=== PATIENT | male | born 2000 | race Caucasian/White ===

== ENCOUNTER 2023-06-16 02:16 | Emergency (ER) | payer MEDICAID, OTHER ==
[~2023-06-16] VITALS: Ht 167.6 cm; Wt 85.0 kg
[2023-06-16 02:19] VITALS: BP 150/97; PULSE 102; RESP 28; TEMP 98.2; O2SAT 98
[2023-06-16 02:44] LABS: BASOPHILS % 0.5 % (0.0-2.0); DIFFERENTIAL COMMENT 0; EOSINOPHILS % 0.9 % (0.0-5.0); HEMATOCRIT. 49.9 % (42.0-52.0); HEMOGLOBIN. 17.7 g/dL (14.0-18.0); LYMPHOCYTES % 38.2 % (20.0-50.0); MEAN CORPUSCULAR HEMOGLOBIN 31.5 pg (28.0-32.0); MEAN CORPUSCULAR HGB CONC 35.6 g/dL (31.0-37.0); MEAN CORPUSCULAR VOLUME 88.5 fL (80.0-94.0); MEAN PLATELET VOLUME 8.4 fl (7.4-10.4); NEUTROPHILS % 55.4 % (40.0-76.0); PLATELET 234 x1000/uL (130-400); RED BLOOD CELL COUNT 5.64 mill/uL (4.7-6.1); RED CELL DISTRIBUTION WIDTH 13.2 % (11.6-14.6); WHITE BLOOD COUNT 4.5 x1000/uL (4.5-11.0)
[2023-06-16 03:03] LABS: ACETAMINOPHEN < 2 ug/mL (10-30); ALANINE AMINOTRANSFERASE 29 IU/L (10-49); ALBUMIN 4.9 g/dL (3.2-4.8); ASPARTATE AMINOTRANSFERASE 21 IU/L (<34); BILIRUBIN TOTAL 0.6 mg/dL (0.1-1.0); CALCIUM 9.6 mg/dL (8.7-10.4); CARBON DIOXIDE 28 mEq/L (21-32); CHLORIDE 104 mEq/L (98-107); CREATININE 0.9 mg/dL (0.6-1.3); ETHANOL BLOOD 234 mg/dL (<10); GLUCOSE 321 mg/dL (70-105); POTASSIUM 3.7 mEq/L (3.5-5.1); PROTEIN TOTAL 7.9 g/dL (6.0-8.3); SODIUM 141 mEq/L (136-145); UREA NITROGEN BLOOD 11 mg/dL (9-23)
[2023-06-16] MEDS ORDERED: ONDA4TAB50 MT (04:25)
[2023-06-16] MEDS ORDERED: INSULIN REGULAR (HUMULIN R) 300UNITS/3ML VIAL SUBCUT NR (04:30)
== END 2023-06-16 05:34 | disposition home or self-care (01) ==
LOC: ER 02:58
DX: F10.129 Alcohol abuse with intoxication, unspecified (principal); E10.65 Type 1 diabetes mellitus with hyperglycemia; Z00.00 Encounter for general adult medical examination without abnormal findings; Y90.8 Blood alcohol level of 240 mg/100 ml or more
CPT/HCPCS: 80053; 80307; 80329; 80320; 82962; 85025; 36415; 96372; 99283; J1815; G0480

== ENCOUNTER 2023-12-14 15:20 | Emergency (ER) | payer MEDICAID, OTHER ==
[~2023-12-14] VITALS: Ht 165.1 cm; Wt 80.0 kg
[~2023-12-14 15:20] MED LIST: ONDA4TAB50 MT
[2023-12-14 15:52] VITALS: TEMP 98.5; O2SAT 97
[2023-12-14] MEDS ORDERED: IBUP-2029 MT (16:44)
[2023-12-14 16:45] VITALS: BP 146/91; PULSE 81; RESP 18
[2023-12-14] MEDS: IBUPROFEN 600MG TABLET PO ONE (16:45)
== END 2023-12-14 16:55 | disposition home or self-care (01) ==
LOC: ER 15:20
DX: S83.92XA Sprain of unspecified site of left knee, initial encounter (principal); F41.9 Anxiety disorder, unspecified; E11.9 Type 2 diabetes mellitus without complications; M25.462 Effusion, left knee; X58.XXXA Exposure to other specified factors, initial encounter; Y93.89 Activity, other specified; Y92.89 Other specified places as the place of occurrence of the external cause; Y99.8 Other external cause status
CPT/HCPCS: 73562; 99283

== ENCOUNTER 2024-04-02 01:21 | Inpatient (IN) | payer MEDICAID ==
[2024-04-02] VITALS (11 sets, daily range): BP systolic 110–135; BP diastolic 51–83; PULSE 67–99; RESP 15–25; TEMP 36.83628–37.44744; O2SAT 9–98
[~2024-04-02] VITALS: Ht 160 cm; Wt 76.7 kg
[~2024-04-02 01:21] MED LIST changes: +IBUP-2029 MT
[2024-04-02] MEDS ORDERED: DILTIAZEM HCL 60MG TABLET PO ONE ×2 (01:45→02:15)
[2024-04-02] MEDS ORDERED: DILTIAZEM HCL 30MG TABLET PO SCH (01:45)
[2024-04-02] MEDS: DILTIAZEM HCL 5MG/ML 5ML VIAL IV ONE (01:53)
[2024-04-02] MEDS: LORAZEPAM 2MG/ML INJ IV ONE (01:54)
[2024-04-02] MEDS: LACTATED RINGERS 1,000 ML IV SCH (02:00)
[2024-04-02] MEDS: DILTIAZEM HCL 30MG TABLET PO SCH (02:15)
[2024-04-02] MEDS ORDERED: DILTIAZEM HCL 5MG/ML 5ML VIAL IV ONE (02:15)
[2024-04-02] MEDS: DILTIAZEM HCL 5MG/ML 5ML VIAL IV SCH (02:16)
[2024-04-02 02:25] LABS: CHLORIDE 106 mEq/L (98-107); SODIUM 141 mEq/L (136-145)
[2024-04-02 02:26] LABS: CALCIUM 8.6 mg/dL (8.7-10.4); CARBON DIOXIDE 21 mEq/L (21-32)
[2024-04-02] MEDS ORDERED: AMIODARONE HCL 900 MG in DEXT 5% WATER 482 ML IV STA (02:28)
[2024-04-02 02:31] LABS: CREATININE 0.9 mg/dL (0.6-1.3); GLUCOSE 323 mg/dL (70-105); UREA NITROGEN BLOOD 11 mg/dL (9-23)
[2024-04-02] MEDS: AMIODARONE HCL 50MG/ML 3ML VIAL IV ONE (02:46)
[2024-04-02] MEDS: AMIODARONE HCL 900 MG in DEXT 5% WATER 482 ML IV SCH (03:06)
[2024-04-02 03:14] LABS: TROPONIN I HIGH SENSITIVITY < 4 ng/L (3.0-53)
[2024-04-02 03:15] LABS: POTASSIUM 2.7 mEq/L (3.5-5.1)
[2024-04-02 03:28] LABS: BASOPHILS % 0.4 % (0.0-2.0); EOSINOPHILS % 0.6 % (0.0-5.0); HEMATOCRIT. 47.5 % (42.0-52.0); HEMOGLOBIN. 16.4 g/dL (14.0-18.0); LYMPHOCYTES % 30.7 % (20.0-50.0); MEAN CORPUSCULAR HEMOGLOBIN 31.2 pg (28.0-32.0); MEAN CORPUSCULAR HGB CONC 34.5 g/dL (31.0-37.0); MEAN CORPUSCULAR VOLUME 90.7 fL (80.0-94.0); MEAN PLATELET VOLUME 9.6 fl (7.4-10.4); MONOCYTES % 4.4 % (2.0-8.0); NEUTROPHILS % 63.9 % (40.0-76.0); PLATELET 237 x1000/uL (130-400); RED BLOOD CELL COUNT 5.24 mill/uL (4.7-6.1); WHITE BLOOD COUNT 5.4 x1000/uL (4.5-11.0)
[2024-04-02] MEDS: POTASSIUM CHLORIDE 20MEQ/PACKET PO ONE (03:50)
[2024-04-02] MEDS: KCL 20MEQ/100ML PREMIX 100 ML IV SCH (04:14)
[2024-04-02] MEDS: MAGNESIUM 2 G PREMIX 50 ML IV ONE (04:15)
[2024-04-02] MEDS ORDERED: DEXTROSE 50% WATER 50ML SYRINGE IV PRN (11:00)
[2024-04-02 12:15] LABS: *AMPHETAMINES SCREEN URINE NEGATIVE (NEGATIVE); *BARBITURATES SCREEN URINE NEGATIVE (NEGATIVE); *BENZODIAZEPINES SCREEN URINE NEGATIVE (NEGATIVE); *COCAINE SCREEN URINE NEGATIVE (NEGATIVE); CANNABINOID URINE SCREEN PRESUMPTIVE POSITIVE (NEGATIVE); ECSTASY MDMA SCREEN URINE NEGATIVE (NEGATIVE); METHADONE URINE SCREEN NEGATIVE (NEGATIVE); OPIATES URINE SCREEN NEGATIVE (NEGATIVE); PHENCYCLIDINE URINE SCREEN NEGATIVE (NEGATIVE)
[2024-04-02] MEDS: BLOOD SUGAR DIAGNOSTIC STRIP TEST SCH (13:26)
[2024-04-02] MEDS: METOPROLOL TARTRATE 25MG TABLET PO SCH (13:44)
[2024-04-02] MEDS: INSULIN LISPRO 100 UNITS/ML SUBCUT SCH (13:45)
[2024-04-02 14:02] LABS: HEPATITIS B SURFACE ANTIGEN NEGATIVE (Negative)
[2024-04-02 14:24] LABS: HEPATITIS C AB NON REACTIVE (Neg) (Negative)
[2024-04-02 18:17] LABS: TROPONIN I HIGH SENSITIVITY 4 ng/L (3.0-53)
[2024-04-02] MEDS: INSULIN GLARGINE 100 UNITS/ML SUBCUT SCH (21:17)
[2024-04-03] VITALS (9 sets, daily range): BP systolic 105–128; BP diastolic 61–93; PULSE 56–68; RESP 13–18; TEMP 36.55848–36.9474; O2SAT 96–100
[2024-04-03 07:27] LABS: CHLORIDE 103 mEq/L (98-107); POTASSIUM 3.6 mEq/L (3.5-5.1); SODIUM 137 mEq/L (136-145)
[2024-04-03 07:28] LABS: CALCIUM 9.7 mg/dL (8.7-10.4); CARBON DIOXIDE 26 mEq/L (21-32)
[2024-04-03 07:33] LABS: BASOPHILS % 0.4 % (0.0-2.0); CREATININE 0.8 mg/dL (0.6-1.3); EOSINOPHILS % 0.8 % (0.0-5.0); GLUCOSE 220 mg/dL (70-105); HEMATOCRIT. 45.7 % (42.0-52.0); HEMOGLOBIN. 15.3 g/dL (14.0-18.0); LYMPHOCYTES % 26.1 % (20.0-50.0); MEAN CORPUSCULAR HEMOGLOBIN 30.8 pg (28.0-32.0); MEAN CORPUSCULAR HGB CONC 33.5 g/dL (31.0-37.0); MEAN CORPUSCULAR VOLUME 91.9 fL (80.0-94.0); MEAN PLATELET VOLUME 8.8 fl (7.4-10.4); MONOCYTES % 8.7 % (2.0-8.0); PLATELET 199 x1000/uL (130-400); RED BLOOD CELL COUNT 4.98 mill/uL (4.7-6.1); RED CELL DISTRIBUTION WIDTH 13.2 % (11.6-14.6); UREA NITROGEN BLOOD 13 mg/dL (9-23); WHITE BLOOD COUNT 5.9 x1000/uL (4.5-11.0)
[2024-04-03 07:35] LABS: ALANINE AMINOTRANSFERASE 14 IU/L (10-49); ALBUMIN 4.6 g/dL (3.2-4.8); ASPARTATE AMINOTRANSFERASE 12 IU/L (<34); BILIRUBIN TOTAL 1.2 mg/dL (0.1-1.0); PROTEIN TOTAL 6.8 g/dL (6.0-8.3)
[2024-04-03] MEDS: ENOXAPARIN 40MG/0.4ML SYR SUBCUT SCH (08:30)
[2024-04-03] MEDS: PANTOPRAZOLE SODIUM 40 MG/VIAL IV SCH (08:30)
[2024-04-03] MEDS ORDERED: LANTUSUD SUBCUT (14:23)
[2024-04-03] MEDS ORDERED: METO25TA6 PO (14:23)
== END 2024-04-03 18:20 | disposition home or self-care (01) | DRG 812 ==
LOC: ER 01:21 → 5EST 03:44 → EDBEDREQTM 03:56 → EDBEDREQ 03:56 → EDBEDREQSVC 03:56
PROVIDERS: ADMIT Internal Medicine; ATTEND Internal Medicine
DX: T40.711A Poisoning by cannabis, accidental (unintentional), initial encounter (principal); G92.8 Other toxic encephalopathy; I47.19 Other supraventricular tachycardia; E11.9 Type 2 diabetes mellitus without complications; Z79.4 Long term (current) use of insulin; F12.10 Cannabis abuse, uncomplicated; F10.10 Alcohol abuse, uncomplicated
CPT/HCPCS: 36415; 71045; 80048; 80053; 80305; 82962; 84443; 84484; 85025; 86705; 87340; 93005; 99291; J0282; J1650; J1815; J2060; J2470; J3475; J3480; J3490; J7060

== ENCOUNTER 2024-06-01 22:35 | Emergency (ER) | payer MEDICAID ==
[~2024-06-01] VITALS: Ht 167.6 cm; Wt 77.0 kg
[~2024-06-01 22:35] MED LIST changes: -IBUP-2029 MT; +LANTUSUD SUBCUT; +METO25TA6 PO; -ONDA4TAB50 MT
[2024-06-01 22:37] VITALS: O2SAT 98
[2024-06-01] MEDS: LORAZEPAM 1MG TABLET PO ONE (23:25)
[2024-06-01] MEDS: SODIUM CHLORIDE 0.9% 1,000 ML IV ONE (23:25)
[2024-06-01 23:29] LABS: CARBON DIOXIDE 23 mEq/L (21-32); CHLORIDE 104 mEq/L (98-107); POTASSIUM 3.3 mEq/L (3.5-5.1); SODIUM 143 mEq/L (136-145)
[2024-06-01 23:30] LABS: CALCIUM 10.1 mg/dL (8.7-10.4)
[2024-06-01 23:34] LABS: CREATININE 0.8 mg/dL (0.6-1.3)
[2024-06-01 23:35] LABS: ETHANOL BLOOD 248 mg/dL (<10); GLUCOSE 202 mg/dL (70-105); UREA NITROGEN BLOOD 9 mg/dL (9-23)
[2024-06-01 23:37] LABS: TROPONIN I HIGH SENSITIVITY < 4 ng/L (3.0-53)
[2024-06-01] MEDS: POTASSIUM CHLORIDE 20MEQ/PACKET PO NR (23:43)
[2024-06-02 00:26] LABS: BASOPHILS % 0.5 % (0.0-2.0); DIFFERENTIAL COMMENT 0; EOSINOPHILS % 1.1 % (0.0-5.0); HEMATOCRIT. 49.6 % (42.0-52.0); HEMOGLOBIN. 17.8 g/dL (14.0-18.0); LYMPHOCYTES % 37.2 % (20.0-50.0); MEAN CORPUSCULAR HEMOGLOBIN 32.1 pg (28.0-32.0); MEAN CORPUSCULAR VOLUME 89.3 fL (80.0-94.0); MONOCYTES % 3.1 % (2.0-8.0); NEUTROPHILS % 58.1 % (40.0-76.0); PLATELET 269 x1000/uL (130-400); RED BLOOD CELL COUNT 5.56 mill/uL (4.7-6.1); RED CELL DISTRIBUTION WIDTH 12.7 % (11.6-14.6); WHITE BLOOD COUNT 4.8 x1000/uL (4.5-11.0)
[2024-06-02 00:35] VITALS: TEMP 36.66960
[2024-06-02] MEDS ORDERED: POTA-204 MT (00:40)
[2024-06-02 00:48] VITALS: BP 123/63; PULSE 103; RESP 18; O2SAT 96
== END 2024-06-02 00:56 | disposition home or self-care (01) ==
LOC: ER 22:35 → EDBEDREQ 22:49 → ER 06-02 00:56
DX: F41.9 Anxiety disorder, unspecified (principal); R00.2 Palpitations; E87.6 Hypokalemia; F10.129 Alcohol abuse with intoxication, unspecified; F12.90 Cannabis use, unspecified, uncomplicated; E11.9 Type 2 diabetes mellitus without complications; Z79.899 Other long term (current) drug therapy
CPT/HCPCS: 80048; 80320; 83880; 85025; 85379; 84484; 36415; 71045; 93005; 96360; 99285; J7030; G0480

== ENCOUNTER 2024-07-27 03:30 | Emergency (ER) | payer MEDICAID ==
[~2024-07-27] VITALS: Ht 157.5 cm; Wt 68.0 kg
[~2024-07-27 03:30] MED LIST changes: +AZIT250T12 PO; +POTA-204 MT; +TAM75 PO
[2024-07-27 03:36] VITALS: O2SAT 99
[2024-07-27 04:09] LABS: CHLORIDE 107 mEq/L (98-107); POTASSIUM 3.6 mEq/L (3.5-5.1); SODIUM 141 mEq/L (136-145)
[2024-07-27 04:10] LABS: BASOPHILS % 0.4 % (0.0-2.0); CALCIUM 9.1 mg/dL (8.7-10.4); CARBON DIOXIDE 21 mEq/L (21-32); EOSINOPHILS % 1.3 % (0.0-5.0); HEMATOCRIT. 47.9 % (42.0-52.0); HEMOGLOBIN. 16.6 g/dL (14.0-18.0); LYMPHOCYTES % 35.2 % (20.0-50.0); MEAN CORPUSCULAR HEMOGLOBIN 31.2 pg (28.0-32.0); MEAN CORPUSCULAR HGB CONC 34.7 g/dL (31.0-37.0); MEAN CORPUSCULAR VOLUME 89.8 fL (80.0-94.0); MEAN PLATELET VOLUME 8.2 fl (7.4-10.4); MONOCYTES % 6.5 % (2.0-8.0); NEUTROPHILS % 56.6 % (40.0-76.0); PLATELET 213 x1000/uL (130-400); RED BLOOD CELL COUNT 5.33 mill/uL (4.7-6.1); RED CELL DISTRIBUTION WIDTH 13.2 % (11.6-14.6); WHITE BLOOD COUNT 4.6 x1000/uL (4.5-11.0)
[2024-07-27 04:15] LABS: CREATININE 0.9 mg/dL (0.6-1.3); GLUCOSE 278 mg/dL (70-105); UREA NITROGEN BLOOD 11 mg/dL (9-23)
[2024-07-27 04:16] LABS: ETHANOL BLOOD 234 mg/dL (<10)
[2024-07-27 04:17] LABS: ALANINE AMINOTRANSFERASE 20 IU/L (10-49); ALBUMIN 4.9 g/dL (3.2-4.8); ASPARTATE AMINOTRANSFERASE 16 IU/L (<34); BILIRUBIN DIRECT 0.1 mg/dL (<=3.0); BILIRUBIN TOTAL 0.7 mg/dL (0.1-1.0); PROTEIN TOTAL 7.3 g/dL (6.0-8.3)
[2024-07-27] MEDS: SODIUM CHLORIDE 0.9% 1,000 ML IV ONE (04:23)
[2024-07-27] MEDS: MAGNESIUM/ALUMINUM HYDROXIDE/SIMETHICONE 30ML UDC PO ONE (04:49)
[2024-07-27] MEDS ORDERED: MAG355OR21 MT (04:54)
[2024-07-27 05:05] VITALS: BP 136/87; PULSE 104; RESP 15; TEMP 36.72516; O2SAT 100
[2024-07-27 05:15] LABS: *AMPHETAMINES SCREEN URINE NEGATIVE (NEGATIVE); *BARBITURATES SCREEN URINE NEGATIVE (NEGATIVE); *BENZODIAZEPINES SCREEN URINE NEGATIVE (NEGATIVE); *COCAINE SCREEN URINE NEGATIVE (NEGATIVE); CANNABINOID URINE SCREEN NEGATIVE (NEGATIVE); METHADONE URINE SCREEN NEGATIVE (NEGATIVE); OPIATES URINE SCREEN NEGATIVE (NEGATIVE); PHENCYCLIDINE URINE SCREEN NEGATIVE (NEGATIVE)
[2024-07-27 05:19] LABS: ECSTASY MDMA SCREEN URINE NEGATIVE (NEGATIVE)
== END 2024-07-27 05:22 | disposition home or self-care (01) ==
LOC: ER 03:30
DX: F10.129 Alcohol abuse with intoxication, unspecified (principal); K29.70 Gastritis, unspecified, without bleeding; E11.9 Type 2 diabetes mellitus without complications; F41.9 Anxiety disorder, unspecified; Z79.899 Other long term (current) drug therapy
CPT/HCPCS: 80076; 80305; 80048; 80320; 85025; 36415; 71045; 93005; 96360; 99285; J7030; G0480

== ENCOUNTER 2025-04-07 22:22 | Emergency (ER) | payer MEDICAID ==
[~2025-04-07] VITALS: Ht 160 cm; Wt 72.0 kg
[~2025-04-07 22:22] MED LIST changes: +MAG355OR21 MT
[2025-04-07 22:23] VITALS: TEMP 37.2; O2SAT 99
[2025-04-07] MEDS: NITROGLYCERIN 0.4MG TABLET SL SL PRN (23:05)
[2025-04-07] MEDS: SODIUM CHLORIDE 0.9% 1,000 ML IV ONE (23:05)
[2025-04-07] MEDS: ASPIRIN 81MG TABLET PO ONE (23:05)
[2025-04-07 23:31] LABS: CREATININE 0.9 mg/dL (0.6-1.3); INR 0.9; UREA NITROGEN BLOOD 11 mg/dL (9-23)
[2025-04-07 23:32] LABS: TROPONIN I HIGH SENSITIVITY < 4 ng/L (3.0-53)
[2025-04-07 23:33] LABS: ASPARTATE AMINOTRANSFERASE 24 IU/L (<34); BILIRUBIN DIRECT 0.2 mg/dL (<=3.0); BILIRUBIN TOTAL 0.8 mg/dL (0.1-1.0); PROTEIN TOTAL 7.0 g/dL (6.0-8.3)
[2025-04-07 23:36] LABS: BASOPHILS % 0.3 % (0.0-2.0); EOSINOPHILS % 0.5 % (0.0-5.0); HEMATOCRIT. 44.0 % (42.0-52.0); HEMOGLOBIN. 15.3 g/dL (14.0-18.0); LYMPHOCYTES % 30.2 % (20.0-50.0); MEAN PLATELET VOLUME 8.6 fl (7.4-10.4); MONOCYTES % 7.6 % (2.0-8.0); NEUTROPHILS % 61.4 % (40.0-76.0); PLATELET 239 x1000/uL (130-400); RED BLOOD CELL COUNT 5.03 mill/uL (4.7-6.1); RED CELL DISTRIBUTION WIDTH 12.9 % (11.6-14.6)
[2025-04-08 01:13] LABS: TROPONIN I HIGH SENSITIVITY < 4 ng/L (3.0-53)
[2025-04-08] MEDS: POTASSIUM CHLORIDE 20MEQ/PACKET PO ONE (01:39)
[2025-04-08 01:41] VITALS: BP 123/79; PULSE 81; RESP 16; O2SAT 98
== END 2025-04-08 01:53 | disposition home or self-care (01) ==
LOC: ER 22:22 → CMPBEDREQ 04-08 07:22
DX: R07.89 Other chest pain (principal); R00.0 Tachycardia, unspecified; E11.9 Type 2 diabetes mellitus without complications; R06.02 Shortness of breath; F41.9 Anxiety disorder, unspecified; Z79.899 Other long term (current) drug therapy
CPT/HCPCS: 80076; 80048; 82010; 82962; 83880; 83735; 84443; 85025; 85379; 85610; 85730; 84484 ×2; 36415 ×2; 71045; 93005 ×2; 96360; 99285; Z7610; J7030